=== PATIENT | female | born 1995 | race Caucasian/White ===

== ENCOUNTER 2018-11-25 19:04 | Emergency (ER) | payer BC ==
[~2018-11-25] VITALS: Ht 172.7 cm; Wt 62.1 kg
--- OUTSIDE RECORDS SUMMARY | 2018-11-25 19:07 | XMS REPORT | Clinical Summary ---
Author Author [facility] Organization [facility] Address Unknown Phone Unavailable Care Team Providers Care Dining Room Supervisor Name Role Phone Vanessa Hernandez MD PCP Allergies No Known Allergies Medications End Date Status Medication Sig Dispensed Refills Start Date 12/04/2018 Active hydrocortisone 2.5 % Apply 30 g 0 ointment topically 8 daily. Active emollient combination Apply 1 225 g 0 no.32 (EPICERAM) application 8 emulsion, extended topically release daily. 02/12/2019 Active citalopram (CeleXA) 20 MG Take 1 tablet 30 tablet 11 tablet (20 mg total) 8 by mouth daily. 04/27/2019 Active gabapentin (NEURONTIN) Take 1 60 capsule 11 300 mg capsule capsule (300 9 mg total) by mouth 2 (two) times a day. 04/27/2019 Active betamethasone Apply 30 g 0 dipropionate (DIPROLENE) topically 2 9 0.05 % ointment (two) times a day. 09/09/2019 [address]in-[address].estr Place 1 patch 9 patch 4 adiol (ORTHO EVRA) 150-35 on the skin 9 mcg/24 hr once a week. 09/09/2018 Discontinued TRINESSA, 28, 4 0.18/0.215/0.25 mg-35 mcg 8 (28) per tablet 09/08/2018 lidocaine (XYLOCAINE) 5 % Apply 35.44 g 0 ointment topically as 8 needed for mild pain. 12/19/2017 Discontinued fluconazole (DIFLUCAN) Take 1 tablet 24 tablet 0 200 MG tablet (200 mg 8 total) by mouth once a week for 24 doses. 11/28/2017 Discontinued gabapentin (NEURONTIN) Take 1 60 capsule 5 100 mg capsule capsule (100 8 mg total) by mouth 2 (two) times a day. 11/24/2017 clindamycin (CLEOCIN HCL) Take 1 14 capsule 0 300 MG capsule capsule (300 8 mg total) by mouth 2 (two) times a day for 7 days. 05/16/2018 doxycycline hyclate 50 mg Take 50 mg by 30 tablet 5 tablet mouth daily 8 for 180 days. 11/24/2017 fluconazole (DIFLUCAN) Take 1 tablet 27 tablet 0 200 MG tablet (200 mg 8 total) by mouth every 3 (three) days for 3 doses. Then 200 mg once weekly x 24 doses 12/19/2017 Discontinued busPIRone (BUSPAR) 10 MG Take 1 tablet 30 tablet 0 tablet (10 mg total) 8 by mouth daily. 11/24/2017 metroNIDAZOLE (FLAGYL) Take 1 tablet 14 tablet 0 500 MG tablet (500 mg 8 total) by mouth 2 (two) times a day for 7 days. 04/27/2018 Discontinued gabapentin (NEURONTIN) Take 1 60 capsule 11 300 mg capsule capsule (300 8 mg total) by mouth 2 (two) times a day. 04/27/2018 Discontinued busPIRone (BUSPAR) 10 MG Take 1 tablet 30 tablet 0 tablet (10 mg total) 8 by mouth daily. 05/30/2018 fluconazole (DIFLUCAN) Take 1 tablet 24 tablet 0 200 MG tablet (200 mg 8 total) by mouth once a week for 24 doses. 12/26/2017 amoxicillin (AMOXIL) 500 Take 1 14 capsule 0 MG capsule capsule (500 8 mg total) by mouth 2 (two) times a day for 7 days. 02/12/2018 Discontinued citalopram (CeleXA) 10 MG Take 1 tablet 90 tablet 1 tablet (10 mg total) 8 by mouth daily. 03/10/2018 nitrofurantoin, Take 1 14 capsule 0 macrocrystal-monohydrate, capsule (100 8 (MACROBID) 100 MG capsule mg total) by mouth 2 (two) times a day for 7 days. 04/27/2018 fluconazole (DIFLUCAN) Take 1 tablet 1 tablet 0 200 MG tablet (200 mg 9 total) by mouth once for 1 dose. 05/27/2018 LORAZepam (ATIVAN) 0.5 MG Take 1 tablet 30 tablet 0 tablet (0.5 mg 9 total) by mouth every 6 (six) hours as needed for anxiety for up to 30 days. 05/06/2018 ampicillin (PRINCIPEN) Take 1 28 capsule 0 500 MG capsule capsule (500 9 mg total) by mouth 4 (four) times a day for 7 days. 04/29/2018 fluconazole (DIFLUCAN) Take 1 tablet 1 tablet 0 200 MG tablet (200 mg 9 total) by mouth once for 1 dose. 07/07/2018 ampicillin (PRINCIPEN) Take 1 28 capsule 0 500 MG capsule capsule (500 9 mg total) by mouth 4 (four) times a day for 7 days. 06/30/2018 fluconazole (DIFLUCAN) Take 1 tablet 1 tablet 0 200 MG tablet (200 mg 9 total) by mouth once for 1 dose. After completing antibiotic 09/09/2018 [address]-ethin.estr Place 1 patch 3 patch 12 adiol (ORTHO EVRA) 150-35 on the skin 9 mcg/24 hr once a week. 09/22/2018 fluconazole (DIFLUCAN) Take 1 tablet 3 tablet 0 200 MG tablet (200 mg 9 total) by mouth every 3 (three) days for 3 doses. 09/24/2018 terconazole (TERAZOL 7) Insert 1 45 g 0 0.4 % vaginal cream applicator 9 into the vagina nightly for 7 days. Active Problems Not on file Encounters Care Team Description Date Type Specialty Lucita Benedict MD 11/05/2018 Orders Only Obstetrics and Gynecology Lucita Benedict MD 10/13/2018 Telephone Obstetrics and Gynecology Christine Seals RN 09/17/2018 Orders Only Obstetrics and Gynecology Lucita Benedict MD 09/15/2018 Orders Only Obstetrics and Gynecology Lucita Benedict MD Exposure to sexually transmitted disease (STD) (Primary Dx); Frequent urination; Vaginal discharge; Vaginal itching; General counseling and advice for contraceptive management; PMS (premenstrual syndrome); Anxiety; Sensation of pressure in bladder area 09/09/2018 Office Visit Obstetrics and Lucita Cleaning MD 08/04/2018 Refill Obstetrics and Gynecology Christine Seals RN 06/30/2018 Orders Only Obstetrics and Lucita Cleaning MD 04/29/2018 Orders Only Obstetrics and Lucita Cleaning MD Vulvodynia (Primary Dx); Urinary tract infection without hematuria, site unspecified; Genital infection; Anxiety; Sebaceous hyperplasia; Vulvar itching 04/27/2018 Office Visit Obstetrics and Gynecology Christine Seals RN 03/03/2018 Orders Only Obstetrics and Lucita Cleaning MD Vulvodynia (Primary Dx); Need for HPV vaccination; Possible exposure to STD; Vulvar itching; Recurrent vaginitis; BV (bacterial vaginosis); Yeast vaginitis 01/19/2018 Office Visit Obstetrics and Gynecology Lucita Benedict MD 01/01/2018 Refill Obstetrics and Gynecology Lucita Benedict MD Groin pain, right; Groin mass in female 12/26/2017 Hospital Radiology Encounter Lucita Benedict MD Right groin mass (Primary Dx); Right groin pain 12/26/2017 Telephone Obstetrics and Gynecology Lucita Benedict MD 12/16/2017 Refill Obstetrics and Lucita Cleaning MD 12/16/2017 Telephone Obstetrics and Gynecology Lucita Benedict MD 12/12/2017 Telephone Obstetrics and Gynecology Lucita Benedict MD 12/04/2017 Orders Only Obstetrics Lucita Figueroa MD 12/02/2017 Telephone Obstetrics and Gynecology after 11/24/2017 Immunizations Name Dates Previously Given Next Due Gardasil-9 07/17/2017 HPV Quadrivalent 01/19/2018 Family History Relation Name Status Comments Brother Alive Father Alive Maternal Grandfather Alive Maternal Grandmother Alive Mother Alive Paternal Grandfather Alive Paternal Grandmother Alive Sister Alive Social History Date Tobacco Use Types Packs/Day Years Used Never Smoker Smokeless Tobacco: Never Used Alcohol Use Drinks/Week oz/Week Comments No Sex Assigned at Date Recorded Not on file Industry Job Start Date Occupation Not on file Not on file Not on file Travel End Travel History Travel Start No recent travel history available. Last Filed Vital Signs Time Taken Vital Sign Reading 09/09/2018 2:27 PM CDT Blood Pressure 126/80 09/09/2018 2:27 PM CDT Pulse 78 - Temperature - - Respiratory Rate - - Oxygen Saturation - - Inhaled Oxygen - Concentration 09/09/2018 2:27 PM CDT Weight 66.2 kg (146 lb) 09/09/2018 2:27 PM CDT Height 172.7 cm (5' 8") 09/09/2018 2:27 PM CDT Body Mass Index 22.2 Plan of Treatment Care Team Description Date Type Specialty Lucita Benedict MD [address] [facility] [address] [place] [address] [id number] 12/24/2018 Office Visit Obstetrics and Gynecology Health Maintenance Due Date Last Done Comments INFLUENZA VACCINE 11/19/2018 CHLAMYDIA SCREENING 09/10/2019 09/09/2018, 01/19/2018, 09/08/2017, Additional history exists Procedures Comments Procedure Name Priority Date/Time Associated Diagnosis SUSCEPTIBILITY, YEAST, Routine 11/05/2018 COMPREHENSIVE PANEL SURESWAB(R), CANDIDIASIS, Routine 09/09/2018 PCR (REFLEX) 5:07 PM CDT SURESWAB(R) TRICHOMONAS Routine 09/09/2018 VAGINALIS RNA, QL, TMA 5:07 PM CDT SURESWAB(R) BACTERIAL Routine 09/09/2018 VAGINOSIS DNA, QN, PCR 5:07 PM CDT (REFLEX) FUNGAL ISOLATE Routine 09/09/2018 IDENTIFICATION 5:07 PM CDT SUSCEPTIBILITY, YEAST, Routine 09/09/2018 COMPREHENSIVE PANEL 5:07 PM CDT CHLAMYDIA/N. GONORRHOEAE Routine 09/09/2018 RNA, TMA (REFLEX) 5:07 PM CDT URINE CULTURE Routine 09/09/2018 Vaginal discharge 5:07 PM CDT Vaginal itching CULTURE, GENITAL Routine 09/09/2018 Vaginal discharge 5:07 PM CDT Vaginal itching HIV 1/2 ANTIGEN/ANTIBODY, Routine 09/09/2018 FOURTH GENERATION W/RFL 5:00 PM CDT (REFLEX [facility]) RPR SCREEN Routine 09/09/2018 Exposure to sexually 5:00 PM CDT transmitted disease (STD) HEPATITIS C ANTIBODY Routine 09/09/2018 Exposure to sexually 5:00 PM CDT transmitted disease (STD) HEPATITIS B SURFACE Routine 09/09/2018 Exposure to sexually ANTIGEN 5:00 PM CDT transmitted disease (STD) URINE CULTURE Routine 04/27/2018 Urinary tract infection 3:44 PM PRODUCT COORDINATOR without hematuria, site unspecified CHLAMYDIA/N. GONORRHOEAE Routine 01/19/2018 Possible exposure to STD RNA, TMA 5:18 PM CDT US PELVIC NON OB LIMITED Routine 12/26/2017 Groin pain, right 1:40 PM CDT Groin mass in female after 11/24/2017 Results * SUSCEPTIBILITY, YEAST, COMPREHENSIVE PANEL (11/05/2018) Only the most recent of 2 results within the time period is included. Narrative Performed At * Fungal Isolated Identification (09/09/2018 5:07 PM CDT) Fungus SEE NOTE [facility] identification Comment: DIAGNOSTICS FUNGAL ISOLATE BLAYNE IDENTIFICATION MICRO NUMBER:[id number] TEST STATUS: FINAL SPECIMEN SOURCE: NOT GIVEN SPECIMEN QUALITY:ADEQUATE RESULT: Growth of Charlee albicans Specimen Resulting Agency Comment Performing Organization Information: Site ID: [id number] Name: [facility] Address: [address] [place] [phone] Director: Joslyn Tavarez Performing Organization Address City/State/Zipcode Phone Number [employer] [address] [address] * SURESWAB(R), CANDIDIASIS, PCR (09/09/2018 5:07 PM CDT) Pathologist [facility] [place] C. albicans, DETECTED (A) [facility] C. glabrata, NOT DETECTED [facility] C. tropicalis, NOT DETECTED [facility] C. NOT DETECTED [facility] parapsilosis, Comment: DIAGNOSTICS DNA REFERENCE RANGE: NOT DETECTED This test was developed and its analytical performance characteristics have been determined by [facility]. It has not been cleared or approved by FDA. This assay has been validated pursuant to the CLIA regulations and is used for clinical purposes. Specimen Resulting Agency Comment Performing Organization Information: Site ID: [id number] Name: [facility] Address: [address] [place] [phone] Director: Royce Burleson MD Performing Organization Address [facility] Cent[facility] Phone Number [employer] [address] [place] [address] [phone] * SURESWAB(R) TRICHOMONAS VAGINALIS RNA, QL, TMA (Reflex) (09/09/2018 5:07 PM CDT) [facility] Sureswab(r) NOT DETECTED [facility] trichomonas Comment: DIAGNOSTICS vaginalis RNA, REFERENCE RANGE: NOT DETECTED QL, TMA This test was performed using the APTIMA(R) Trichomonas vaginalis assay (Gen-Probe(R)). For additional information, please refer to http://education.Peek Kids.com/faq/Trichomonastma Specimen Resulting Agency Comment Performing Organization Information: Site ID: [id number] Name: [employer] Address: [address] [place] [phone] Director: Royce Burleson MD Performing Organization Address City/[facility]/Zipcode Phone Number [employer] [address] [place] [phone] * SURESWAB(R) BACTERIAL VAGINOSIS DNA, QN, PCR (09/09/2018 5:07 PM CDT) Pathologist [facility] [place] BV category NOT SUPPORTIVE [facility] Lactobacillus 7.5 Log (cells/mL) [facility] species [facility]AGNOSTICS Atopobium NOT DETECTED Log (cells/mL) [facility] vaginae [facility] Megasphaera NOT DETECTED Log (cells/mL) [facility] Gardnerella <4.7 Log (cells/mL) [facility] vaginalis Comment: DIAGNOSTICS REFERENCE RANGE: BV Category: NOT SUPPORTIVE NOT SUPPORTIVE OF BV: The pattern of results is not supportive of a diagnosis of BV: 1) Presence of Lactobacillus spp., G. vaginalis levels less than 6.0 log cells/mL, and absence of A. vaginae and Megasphaera spp; or 2) Absence of all targeted organisms; or 3) Absence of Lactobacillus spp. plus G. vaginalis detected at levels less than 6.0 log cells/mL and absence of A. vaginae and Megasphaera spp. EQUIVOCAL FOR BV: The pattern of results is neither supportive nor not supportive of a diagnosis of BV. The patient may be in transition into or out of BV: Presence of Lactobacillus spp. plus G. vaginalis (greater or equal to 6.0 log cells/mL) and/or one of the other BV-associated pathogens. SUPPORTIVE OF BV: The pattern of results is supportive of a diagnosis of BV: Absence of Lactobacillus spp. and presence of G. vaginalis greater than or equal to 6.0 log cells/mL and/or one or both of the other BV-associated pathogens. Concentration for Lactobacilli (L. acidophilus/crispatus, L. jensenii) are collectively reported under the term "Lactobacillus spp.", as these species are among the peroxide producing Lactobacilli thought to be protective against bacterial vaginosis. Atopobium vaginae, Megasphaera spp., and Gardnerella (greater than 6.0 log cells/mL) have been associated with vaginosis when present in the absence of peroxidase producing Lactobacilli. This test was developed and its analytical performance characteristics have been determined by [facility]. It has not been cleared or approved by FDA. This assay has been validated pursuant to the CLIA regulations and is used for clinical purposes. Specimen Resulting Agency Comment Performing Organization Information: Site ID: [id number] Name: [facility] Address: [address] [place] [phone] Director: Royce Burleson MD Performing Organization Address [facility] Centercode Phone Number [employer] [address] [place] [address] [phone] * CHLAMYDIA/N. GONORRHOEAE RNA, TMA (09/09/2018 5:07 PM CDT) Chlamydia NOT DETECTED [facility] trachomatis [facility]AG[facility]STICS RNA, TMA Neisseria NOT DETECTED [facility] gonorrhoeae Comment: DIAGNOSTICS RNA, TMA REFERENCE RANGE:NOT DETECTED This test was performed using the APTIMA(R) COMBO2 Assay (GENSimply MeasuredPROBE). http://education.iReTron, Inc/faq/PXH122 (This link is being provided for informational/ educational purposes only.) Specimen Resulting Agency Comment Performing Organization Information: Site ID: [id number] Name: [facility] Address: [address] [place] [phone] Director: Royce Burleson MD Performing Organization Address [facility] Centercode Phone Number [employer] [address] [place] [address] [phone] * Culture, Genital (09/09/2018 5:07 PM CDT) Culture, SEE NOTE [facility] genital Comment: DIAGNOSTICS CULTURE, GENITAL [place] MICRO NUMBER:[id number] TEST STATUS: FINAL SPECIMEN SOURCE: NOT GIVEN SPECIMEN QUALITY:ADEQUATE RESULT: Scant growth of Yeast present , identification and susceptibility results to follow on a separate report. COMMENT: Normal urogenital wolf also present. Specimen Genital Resulting Agency Comment Performing Organization Information: Site ID: [id number] Name: [facility] Address: [address] [place] [phone] Director: Joslyn Tavarez Performing Organization Address [facility]/Zipcode Phone Number [employer] [address] [address] * Urine culture (09/09/2018 5:07 PM CDT) Only the most recent of 2 results within the time period is included. Urine culture SEE NOTE [facility] Comment: DIAGNOSTICS CULTURE, URINE, ROUTINE [place] MICRO NUMBER:[id number] TEST STATUS: FINAL SPECIMEN SOURCE: URINE SPECIMEN QUALITY:ADEQUATE RESULT: No Growth Specimen Urine Resulting Agency Comment Performing Organization Information: Site ID: [id number] Name: [facility] Address: [address] [place] [phone] Director: Joslyn Tavarez Performing Organization Address City/[facility]/Zipcode Phone [place] [address] * HIV 1/2 ANTIGEN/ANTIBODY, FOURTH GENERATION W/RFL (REFLEX [facility]) (09/09/2018 5:00 PM CDT) HIV AG/AB 4th NON-REACTIVE NON-REACTIVE [facility] gen Comment: DIAGNOSTICS HIV-1 antigen and HIV-1/HIV-2 [place] antibodies were not detected. There is no laboratory evidence of HIV infection. PLEASE NOTE: This information has been disclosed to you from records whose confidentiality may be protected by state law.If your state requires such protection, then the state law prohibits you from making any further disclosure of the information without the specific written consent of the person to whom it pertains, or as otherwise permitted by law. A general authorization for the release of medical or other information is NOT sufficient for this purpose. For additional information please refer to http://[employer].iReTron[employer] Inc/faq/ACT344 (This link is being provided for informational/ educational purposes only.) The performance of this assay has not been clinically validated in patients less than 2 years old. Specimen Resulting Agency Comment Performing Organization Information: Site ID: [id number] Name: [facility] Address: [address] [place] [phone] Director: Joslyn Tavarez Performing Organization Address City/[facility]/Zipcode [place] [address] * Hepatitis C antibody (09/09/2018 5:00 PM CDT) Hepatitis C Ab NON-REACTIVE NON-REACTIVE [employer] [place] Signal/cutoff 0.02 <1.00 [facility] Comment: DIAGNOSTICS HCV antibody was non-reactive. [place] There is no laboratory evidence of HCV infection. In most cases, no further action is required. However, if recent HCV exposure is suspected, a test for HCV RNA (test code 09214) is suggested. For additional information please refer to http://education.iReTron, Inc/faq/KLI83x1 (This link is being provided for informational/ educational purposes only.) Specimen Blood Resulting Agency Comment Performing Organization Information: Site ID: [id number] Name: [facility] Address: [address] [place] [phone] Director: Joslyn Tavarez Performing Organization Address [facility] Centercode Phone Number [facility] [employer] [place] [phone] * RPR screen (09/09/2018 5:00 PM CDT) Pathologist [facility] RPR (monitor) NON-REACTIVE NON-REACTIVE [facility] w/refl titer DIAGNOSTICS [place] Specimen Blood Resulting Agency Comment Performing Organization Information: Site ID: [id number] Name: [facility] Address: [address] [place] [phone] Director: Joslyn Tavarez Performing Organization Address [facility] Centercoks [place] [address] * Hepatitis B surface antigen (09/09/2018 5:00 PM CDT) Pathologist [facility] Hepatitis B NON-REACTIVE NON-REACTIVE [facility] surface Ag DIAGNOSTICS [place] Specimen Blood Resulting Agency Comment Performing Organization Information: Site ID: [id number] Name: [facility] Address: [address] [place] [phone] Director: Joslyn Tavarez Performing Organization Address [facility] Centercoks Phone Number [facility] [employer] [address] [address] * CHLAMYDIA/N. GONORRHOEAE RNA, TMA (01/19/2018 5:18 PM CDT) Pathologist [facility] Chlamydia NOT DETECTED NOT DETECTED [facility] trachomatis DIAGNOSTICS RNA, [facility] Neisseria NOT DETECTED NOT DETECTED [facility] gonorrhoeae DIAGNOSTICS RNA, TMA [place] (Always Comment: [facility] message) This test was performed using DIAGNOSTICS the APTIMA COMBO2 Assay [place] (GenSimply MeasuredProbe Inc.). The analytical performance characteristics of this assay, when used to test SurePath specimens have been determined by [facility]. Specimen Swab Resulting Agency Comment Performing Organization Information: Site ID: A Name: [facility] Address: [address] [place] [phone] Director: Joslyn Tavarez Performing Organization Address City/[facility]/Zipcode Phone Number [employer] [place] [address] [place] [address] * US Pelvic Non Ob Limited (12/26/2017 1:40 PM CDT) Specimen Narrative Performed At EXAMINATION:US PELVIC NON OB LIMITED [facility] CLINICAL HISTORY:R10.31 Right lower quadrant pain, R19.09 Other intra-abdominal and pelvic swellingmass and lump, focus on right groin (right groin pain and palpable mass) COMPARISON:None. IMPRESSION: At the request the clinical service a focused examination was performed at the direction of the patient in the area of the right groin.No mass or cystic structure was identified..Note that at time of the examination today the patient said she could not feel the mass. [id number] Procedure Note Hm Interface, Radiology Results Incoming - 12/26/2017 2:27 PM CDT EXAMINATION: US PELVIC NON OB LIMITED CLINICAL HISTORY: R10.31 Right lower quadrant pain, R19.09 Other intra- abdominal and pelvic swelling mass and lump, focus on right groin (right groin pain and palpable mass) COMPARISON: None. IMPRESSION: At the request the clinical service a focused examination was performed at the direction of the patient in the area of the right groin. No mass or cystic structure was identified.. Note that at time of the examination today the patient said she could not feel the mass. [id number] Performing Organization Address [facility] Centercode Phone Number [facility] [address] [place] [address] after 11/24/2017 Insurance Type Payer Benefit Subscriber ID Effective Phone Address Plan / Dates Group PPO BCBS BCBS xxxxxxxxxxxx [id number] CHOICE resent PPO/MALLY JOHNSON PPO Advance Directives Patient has advance care planning documents on file. For more information, brenda mcbride contact: Blayne Frances [address] [place] [address]
[2018-11-25] MEDS ORDERED: PENICILLIN G BENZATHINE LA 1.2 MU TBX IM STA (19:23)
[2018-11-25] MEDS ORDERED: IBUPROFEN 600 MG TAB PO STA (19:32)
[2018-11-25] MEDS ORDERED: IBUPROFEN 600 MG TAB ONE (19:35)
[2018-11-25] MEDS ORDERED: IBUPROFEN 600 MG TAB PO ONE (19:45)
[2018-11-25] MEDS ORDERED: PENICILLIN G BENZATHINE LA 1.2 MU TBX IM ONE (19:45)
== END 2018-11-25 20:36 | disposition home or self-care (01) ==
LOC: ER 19:04
DX: J02.0 Streptococcal pharyngitis (principal)
CPT/HCPCS: 96372; 99282; J0561